=== PATIENT | male | born 1970 | race African-American/Black ===

== ENCOUNTER 2019-02-14 03:59 | Emergency (ER) | payer OTHER ==
[~2019-02-14] VITALS: Ht 182.9 cm; Wt 128.0 kg
[2019-02-14] MEDS ORDERED: CLONIDINE 0.1MG TABLET PO ONE (09:45)
[2019-02-14] MEDS ORDERED: HYDRALAZINE HCL 10MG TABLET PO ONE (10:45)
[2019-02-14] MEDS ORDERED: ACETAMINOPHEN 325MG TABLET PO ONE (11:30)
[2019-02-14] MEDS ORDERED: AMOXICILLIN/POTASSIUM CLAVULANATE 875/125MG TAB PO ONE (11:30)
[2019-02-14] MEDS ORDERED: CLONIDINE 0.2MG TABLET PO ONE (12:30)
[2019-02-14 13:15] VITALS: BP 136/81
== END 2019-02-14 13:30 | disposition home or self-care (01) ==
LOC: ER 04:44
DX: I10 Essential (primary) hypertension (principal); H66.90 Otitis media, unspecified, unspecified ear; Z88.6 Allergy status to analgesic agent; Z88.8 Allergy status to other drugs, medicaments and biological substances
CPT/HCPCS: 99284

== ENCOUNTER 2020-05-22 13:40 | Emergency (ER) | payer OTHER ==
[~2020-05-22] VITALS: Ht 185.4 cm; Wt 110.0 kg
[2020-05-22 13:57] VITALS: BP 163/85
[2020-05-22] MEDS ORDERED: BO1 TP (14:23)
== END 2020-05-22 14:53 | disposition home or self-care (01) ==
LOC: ER 13:40
DX: H10.10 Acute atopic conjunctivitis, unspecified eye (principal); M79.675 Pain in left toe(s); Z88.6 Allergy status to analgesic agent; Z88.8 Allergy status to other drugs, medicaments and biological substances
CPT/HCPCS: 99282

== ENCOUNTER 2021-01-03 22:30 | Emergency (ER) | payer OTHER ==
[~2021-01-03] VITALS: Ht 182.9 cm; Wt 141.0 kg
[~2021-01-03 22:30] MED LIST: BO1 TP
[2021-01-03] MEDS ORDERED: FAMOTIDINE 20MG/2ML VIAL IV STA (23:57)
[2021-01-03] MEDS ORDERED: MAGNESIUM/ALUMINUM HYDROXIDE/SIMETHICONE 30ML UDC PO STA (23:57)
[2021-01-04] MEDS ORDERED: SODIUM CHLORIDE 0.9% 1,000 ML IV ONE
[2021-01-04 00:58] LABS: BASOPHILS % 1.5 % (0.0-2.0); EOSINOPHILS % 2.9 % (0.0-5.0); HEMATOCRIT. 42.3 % (42.0-52.0); HEMOGLOBIN. 13.7 g/dL (14.0-18.0); LYMPHOCYTES % 28.5 % (20.0-50.0); MEAN CORPUSCULAR HEMOGLOBIN 28.2 pg (28.0-32.0); MEAN CORPUSCULAR VOLUME 86.7 fL (80.0-94.0); MEAN PLATELET VOLUME 8.5 fl (7.4-10.4); MONOCYTES % 4.1 % (2.0-8.0); PLATELET 310 x1000/uL (130-400); RED BLOOD CELL COUNT 4.88 mill/uL (4.7-6.1); RED CELL DISTRIBUTION WIDTH 14.7 % (11.6-14.6)
[2021-01-04 01:09] LABS: CHLORIDE 103 mEq/L (98-107)
[2021-01-04] MEDS ORDERED: ACETAMINOPHEN 325MG TABLET PO ONE (06:45)
[2021-01-04] MEDS ORDERED: FAMO-123 PO (06:45)
[2021-01-04] MEDS ORDERED: ACET-2708 MT (06:46)
[2021-01-04 06:58] LABS: CLARITY URINE CLEAR (CLEAR); COLOR URINE YELLOW (YELLOW); KETONES URINE TRACE (NEGATIVE); LEUKOCYTE ESTERASE URINE 1+ (NEGATIVE); NITRITE URINE NEGATIVE (NEGATIVE); OCCULT BLOOD URINE NEGATIVE (NEGATIVE); PH URINE 5.5 (4.5-8.0); PROTEIN URINE NEGATIVE (NEGATIVE); SPECIFIC GRAVITY URINE 1.023 (1.005-1.030); UROBILINOGEN URINE 0.2 E.U./dL (0.2-1.0)
[2021-01-04 07:15] VITALS: BP 159/96
== END 2021-01-04 07:15 | disposition home or self-care (01) ==
LOC: ER 22:30
DX: K52.9 Noninfective gastroenteritis and colitis, unspecified (principal); D72.829 Elevated white blood cell count, unspecified; E88.89 Other specified metabolic disorders
CPT/HCPCS: 36415; 80053; 81003; 83690; 85025; 93005; 99284; J7030

== ENCOUNTER 2021-09-20 11:50 | Emergency (ER) | payer OTHER ==
[~2021-09-20] VITALS: Ht 182.9 cm; Wt 127.0 kg
[~2021-09-20 11:50] MED LIST changes: +ACET-2708 MT; +FAMO-123 PO
[2021-09-20] MEDS ORDERED: IBUPROFEN 600MG TABLET PO STA (13:26)
[2021-09-20 13:37] VITALS: BP 168/97
[2021-09-20] MEDS ORDERED: AMOX-494 PO (15:09)
[2021-09-20] MEDS ORDERED: NAPR-681 PO (15:09)
== END 2021-09-20 15:35 | disposition home or self-care (01) ==
LOC: ER 11:59
DX: K12.0 Recurrent oral aphthae (principal); J02.9 Acute pharyngitis, unspecified; I10 Essential (primary) hypertension
CPT/HCPCS: 87430; 99283

== ENCOUNTER 2022-04-10 15:19 | Emergency (ER) | payer OTHER ==
[~2022-04-10] VITALS: Ht 182.9 cm; Wt 137.0 kg
[~2022-04-10 15:19] MED LIST changes: +AMOX-494 PO; +NAPR-681 PO
[2022-04-10 15:26] VITALS: BP 150/73
[2022-04-10] MEDS ORDERED: CETI10CA11 MT (17:08)
[2022-04-10] MEDS ORDERED: FLUT9.9S16 BOTHNSTRLS (17:08)
[2022-04-10] MEDS ORDERED: CLOT15CR5 TP (17:08)
== END 2022-04-10 17:45 | disposition home or self-care (01) ==
LOC: ER 16:31
DX: B34.9 Viral infection, unspecified (principal); R21 Rash and other nonspecific skin eruption; E78.00 Pure hypercholesterolemia, unspecified; I10 Essential (primary) hypertension; G51.0 Bell's palsy; Z88.6 Allergy status to analgesic agent; Z88.8 Allergy status to other drugs, medicaments and biological substances
CPT/HCPCS: 99281; 99283

== ENCOUNTER 2022-07-30 10:44 | Emergency (ER) | payer OTHER ==
[~2022-07-30] VITALS: Ht 182.9 cm; Wt 139.5 kg
[~2022-07-30 10:44] MED LIST changes: +CETI10CA11 MT; +CLOT15CR5 TP; +FLUT9.9S16 BOTHNSTRLS
[2022-07-30] MEDS ORDERED: DICL75TA5 MT (11:14)
[2022-07-30] MEDS ORDERED: GABA-529 MT (11:14)
[2022-07-30] MEDS ORDERED: CYCL10TA21 MT (11:16)
[2022-07-30 11:39] VITALS: BP 146/83
== END 2022-07-30 11:41 | disposition home or self-care (01) ==
LOC: ER 10:44
DX: M54.50 Low back pain, unspecified (principal); I10 Essential (primary) hypertension; E78.00 Pure hypercholesterolemia, unspecified; Z88.5 Allergy status to narcotic agent; Z88.8 Allergy status to other drugs, medicaments and biological substances; Z79.899 Other long term (current) drug therapy; Z98.890 Other specified postprocedural states
CPT/HCPCS: 99283

== ENCOUNTER 2022-08-30 11:00 | Emergency (ER) | payer OTHER ==
[~2022-08-30] VITALS: Ht 182.9 cm; Wt 142.0 kg
[~2022-08-30 11:00] MED LIST changes: +CYCL10TA21 MT; +DICL75TA5 MT; +GABA-529 MT; +SULF1TAB48 MT
[2022-08-30 11:07] VITALS: BP 167/106; PULSE 99; RESP 18; TEMP 97.8; O2SAT 98
== END 2022-08-30 12:20 | disposition home or self-care (01) ==
LOC: ER 11:00
DX: Z48.02 Encounter for removal of sutures (principal); E78.00 Pure hypercholesterolemia, unspecified; I10 Essential (primary) hypertension; Z79.899 Other long term (current) drug therapy
CPT/HCPCS: 99281

== ENCOUNTER 2022-09-03 04:32 | Emergency (ER) | payer OTHER ==
[~2022-09-03] VITALS: Ht 182.9 cm; Wt 142.0 kg
[2022-09-03 04:36] VITALS: O2SAT 98
[2022-09-03 06:06] VITALS: BP 122/70; PULSE 102; RESP 21; TEMP 97.8
== END 2022-09-03 06:07 | disposition home or self-care (01) ==
LOC: ER 04:48
DX: Z48.00 Encounter for change or removal of nonsurgical wound dressing (principal); Z88.5 Allergy status to narcotic agent; Z88.8 Allergy status to other drugs, medicaments and biological substances
CPT/HCPCS: 99281

== ENCOUNTER 2022-11-03 17:19 | Emergency (ER) | payer OTHER ==
[~2022-11-03] VITALS: Ht 182.9 cm; Wt 132.0 kg
[2022-11-03 17:37] VITALS: TEMP 98.5; O2SAT 99
[2022-11-03] MEDS ORDERED: KETOROLAC 60MG/2ML VIAL IM ONE (22:00)
[2022-11-03] MEDS ORDERED: ACETAMINOPHEN 325MG TABLET PO ONE (22:00)
[2022-11-04] MEDS ORDERED: ONDANSETRON HCL 4MG/2ML INJ IV ONE (00:15)
[2022-11-04] MEDS ORDERED: MORPHINE SULFATE 4 MG/ML CPJ (NOT FOR IM USE) IV ONE (00:15)
[2022-11-04 00:32] LABS: BASOPHILS % 1.1 % (0.0-2.0); EOSINOPHILS % 2.4 % (0.0-5.0); HEMATOCRIT. 42.1 % (42.0-52.0); HEMOGLOBIN. 13.9 g/dL (14.0-18.0); LYMPHOCYTES % 29.9 % (20.0-50.0); MEAN CORPUSCULAR HEMOGLOBIN 28.8 pg (28.0-32.0); MEAN CORPUSCULAR HGB CONC 33.1 g/dL (31.0-37.0); MEAN CORPUSCULAR VOLUME 86.8 fL (80.0-94.0); MEAN PLATELET VOLUME 8.2 fl (7.4-10.4); MONOCYTES % 4.6 % (2.0-8.0); PLATELET 317 x1000/uL (130-400); RED BLOOD CELL COUNT 4.85 mill/uL (4.7-6.1); WHITE BLOOD COUNT 12.2 x1000/uL (4.5-11.0)
[2022-11-04 00:37] LABS: CHLORIDE 105 mEq/L (98-107); INDEX HEMOLYSI 1 (1-3); INDEX ICTERIC 1 (1-4); INDEX LIPEMIC 1 (1-3); POTASSIUM 3.6 mEq/L (3.5-5.1); SODIUM 138 mEq/L (136-145)
[2022-11-04 00:58] LABS: ALANINE AMINOTRANSFERASE 44 IU/L (13-61); ALBUMIN 3.6 g/dL (3.4-5.0); ASPARTATE AMINOTRANSFERASE 27 IU/L (15-37); BILIRUBIN DIRECT < 0.1 mg/dL (0.0-0.2); BILIRUBIN TOTAL 0.4 mg/dL (0.1-1.0); CARBON DIOXIDE 28 mEq/L (21-32); CREATININE 0.9 mg/dL (0.6-1.3); GLUCOSE 121 mg/dL (70-105); PROTEIN TOTAL 8.5 g/dL (6.0-8.3); UREA NITROGEN BLOOD 12 mg/dL (7-21)
[2022-11-04 01:24] LABS: PARTIAL THROMBOPLASTIN TIME 26.1 sec (23.4-31.0); PROTHROMBIN TIME 10.7 sec (9.6-11.0)
[2022-11-04] MEDS ORDERED: IOHEXOL-300 100 ML BOTTLE ONE (02:43)
[2022-11-04 04:08] VITALS: BP 132/62; PULSE 80; RESP 16
== END 2022-11-04 04:49 | disposition home or self-care (01) ==
LOC: ER 17:19
DX: R10.9 Unspecified abdominal pain (principal); M25.552 Pain in left hip; M79.652 Pain in left thigh; E11.9 Type 2 diabetes mellitus without complications; I10 Essential (primary) hypertension; E78.00 Pure hypercholesterolemia, unspecified; M54.30 Sciatica, unspecified side; Z88.8 Allergy status to other drugs, medicaments and biological substances; V98.8XXA Other specified transport accidents, initial encounter; Y93.89 Activity, other specified; Y92.89 Other specified places as the place of occurrence of the external cause; Y99.8 Other external cause status
CPT/HCPCS: 96372; 99285; 80076; 80048; 83690; 85025; 85610; 85730; 36415; 74177; 96374; 96375; J1885; Z7610; Q9967; J2405; J2270

== ENCOUNTER 2024-02-27 10:39 | Emergency (ER) | payer OTHER ==
[~2024-02-27] VITALS: Ht 182.9 cm; Wt 122.6 kg
[2024-02-27 10:48] VITALS: O2SAT 99
[2024-02-27 12:07] VITALS: BP 145/87; PULSE 81; RESP 16; TEMP 37.11408; O2SAT 99
== END 2024-02-27 12:52 | disposition home or self-care (01) ==
LOC: ER 10:39
DX: H92.01 Otalgia, right ear (principal); I10 Essential (primary) hypertension; Z88.5 Allergy status to narcotic agent
CPT/HCPCS: 99281

== ENCOUNTER 2025-01-28 06:53 | Emergency (ER) | payer OTHER ==
[~2025-01-28] VITALS: Ht 182.9 cm; Wt 130.0 kg
[2025-01-28 07:04] VITALS: O2SAT 99
[2025-01-28] MEDS: ACETAMINOPHEN 325MG TABLET PO ONE (08:13)
[2025-01-28] MEDS: IBUPROFEN 400MG TABLET PO ONE (08:13)
[2025-01-28] MEDS: ACETAMINOPHEN 1000MG/100ML 100 ML IV ONE (09:14)
[2025-01-28] MEDS: MORPHINE SULFATE 4 MG/ML INJ (FOR IV/IM USE) IV ONE (09:14)
[2025-01-28 09:47] LABS: BASOPHILS % 0.9 % (0.0-2.0); EOSINOPHILS % 1.5 % (0.0-5.0); HEMATOCRIT. 46.5 % (42.0-52.0); HEMOGLOBIN. 15.4 g/dL (14.0-18.0); LYMPHOCYTES % 27.7 % (20.0-50.0); MEAN PLATELET VOLUME 8.9 fl (7.4-10.4); MONOCYTES % 4.9 % (2.0-8.0); NEUTROPHILS % 65.0 % (40.0-76.0); PLATELET 338 x1000/uL (130-400); RED BLOOD CELL COUNT 5.20 mill/uL (4.7-6.1); RED CELL DISTRIBUTION WIDTH 15.4 % (11.6-14.6)
[2025-01-28 11:10] VITALS: TEMP 36.6
[2025-01-28 11:12] LABS: CREATININE 1.2 mg/dL (0.6-1.3); UREA NITROGEN BLOOD 10 mg/dL (9-23)
[2025-01-28 13:04] VITALS: BP 160/90; PULSE 70; RESP 15; O2SAT 99
== END 2025-01-28 12:01 | disposition short-term general hospital (02) ==
LOC: ER 06:53 → EDBEDREQ 11:06 → EDBEDREQTM 11:06 → CANBEDREQ 11:15 → ER 12:01
DX: M54.59 Other low back pain (principal); E11.9 Type 2 diabetes mellitus without complications; E78.00 Pure hypercholesterolemia, unspecified; I10 Essential (primary) hypertension; I89.0 Lymphedema, not elsewhere classified; Z59.11 Inadequate housing environmental temperature; Z79.85 Long-term (current) use of injectable non-insulin antidiabetic drugs; Z88.5 Allergy status to narcotic agent
CPT/HCPCS: 80048; 85025; 36415; 72100; 96365; 96375; 99285; J2270; Z7610 ×3; A6449; A4606; J0131